=== PATIENT | female | born 1975 | race Caucasian/White ===

== ENCOUNTER 2023-11-15 13:00 | Outpatient (CLI) | payer OTHER, BC | END 2023-11-15 13:01 | disposition home or self-care (01) | LOC: CSHWCC 13:00 | PROVIDERS: ATTEND Nurse Practitioner Family | DX: E11.621 Type 2 diabetes mellitus with foot ulcer (principal); E11.65 Type 2 diabetes mellitus with hyperglycemia; L97.512 Non-pressure chronic ulcer of other part of right foot with fat layer exposed; M14.671 Charcot's joint, right ankle and foot | CPT/HCPCS: 11042 ==

== ENCOUNTER 2023-11-29 10:30 | Outpatient (CLI) | payer OTHER, BC | END 2023-11-29 10:31 | disposition home or self-care (01) | LOC: CSHWCC 10:30 | PROVIDERS: ATTEND Nurse Practitioner Family | DX: E11.621 Type 2 diabetes mellitus with foot ulcer (principal); L97.512 Non-pressure chronic ulcer of other part of right foot with fat layer exposed; E11.65 Type 2 diabetes mellitus with hyperglycemia; M14.671 Charcot's joint, right ankle and foot | CPT/HCPCS: 11042 ==

== ENCOUNTER 2023-12-13 09:26 | Outpatient (CLI) | payer OTHER, BC | END 2023-12-13 09:27 | disposition home or self-care (01) | LOC: CSHWCC 09:26 | PROVIDERS: ATTEND Nurse Practitioner Family | DX: E11.621 Type 2 diabetes mellitus with foot ulcer (principal); L97.512 Non-pressure chronic ulcer of other part of right foot with fat layer exposed; E11.65 Type 2 diabetes mellitus with hyperglycemia; M14.671 Charcot's joint, right ankle and foot | CPT/HCPCS: 11042; 99212; G0463 ==

== ENCOUNTER 2023-12-16 09:18 | Outpatient (CLI) | payer OTHER, BC | END 2023-12-16 09:19 | disposition home or self-care (01) | LOC: CSHWCC 09:18 | PROVIDERS: ATTEND Nurse Practitioner Family | DX: E11.621 Type 2 diabetes mellitus with foot ulcer (principal); E11.65 Type 2 diabetes mellitus with hyperglycemia; L97.512 Non-pressure chronic ulcer of other part of right foot with fat layer exposed; M14.671 Charcot's joint, right ankle and foot | CPT/HCPCS: 29445 ==

== ENCOUNTER 2023-12-20 11:14 | Outpatient (CLI) | payer OTHER, BC | END 2023-12-20 11:15 | disposition home or self-care (01) | LOC: CSHWCC 11:14 | PROVIDERS: ATTEND Nurse Practitioner Family | DX: E11.621 Type 2 diabetes mellitus with foot ulcer (principal); E11.65 Type 2 diabetes mellitus with hyperglycemia; L97.512 Non-pressure chronic ulcer of other part of right foot with fat layer exposed; M14.671 Charcot's joint, right ankle and foot | CPT/HCPCS: 97597 ==

== ENCOUNTER 2023-12-27 11:59 | Outpatient (CLI) | payer OTHER, BC | END 2023-12-27 12:00 | disposition home or self-care (01) | LOC: CSHWCC 11:59 | PROVIDERS: ATTEND Nurse Practitioner Family | DX: E11.621 Type 2 diabetes mellitus with foot ulcer (principal); L97.512 Non-pressure chronic ulcer of other part of right foot with fat layer exposed; E11.65 Type 2 diabetes mellitus with hyperglycemia; M14.671 Charcot's joint, right ankle and foot | CPT/HCPCS: 99212; G0463 ==

== ENCOUNTER 2024-04-03 12:37 | Outpatient (CLI) | payer OTHER, BC | END 2024-04-03 12:38 | disposition home or self-care (01) | LOC: CSHWCC 12:37 | PROVIDERS: ATTEND Nurse Practitioner Family | DX: E11.621 Type 2 diabetes mellitus with foot ulcer (principal); L97.512 Non-pressure chronic ulcer of other part of right foot with fat layer exposed; E11.65 Type 2 diabetes mellitus with hyperglycemia; M14.671 Charcot's joint, right ankle and foot | CPT/HCPCS: 97597; 99213; G0463 ==

== ENCOUNTER 2024-04-10 09:45 | Outpatient (CLI) | payer OTHER, BC | END 2024-04-10 09:46 | disposition home or self-care (01) | LOC: CSHWCC 09:45 | PROVIDERS: ATTEND Nurse Practitioner Family | DX: E11.621 Type 2 diabetes mellitus with foot ulcer (principal); L97.512 Non-pressure chronic ulcer of other part of right foot with fat layer exposed; E11.65 Type 2 diabetes mellitus with hyperglycemia; M14.671 Charcot's joint, right ankle and foot | CPT/HCPCS: 29445 ==

== ENCOUNTER 2024-04-17 08:56 | Outpatient (CLI) | payer OTHER, BC | END 2024-04-17 08:57 | disposition home or self-care (01) | LOC: CSHWCC 08:56 | PROVIDERS: ATTEND Nurse Practitioner Family | DX: E11.621 Type 2 diabetes mellitus with foot ulcer (principal); L97.512 Non-pressure chronic ulcer of other part of right foot with fat layer exposed; E11.65 Type 2 diabetes mellitus with hyperglycemia; M14.671 Charcot's joint, right ankle and foot | CPT/HCPCS: 99212; G0463 ==